=== PATIENT | female | born 1995 | race Two or more races ===

== ENCOUNTER 2024-09-01 06:13 | Emergency (ER) | payer OTHER ==
[~2024-09-01] VITALS: Ht 165.1 cm; Wt 54.4 kg
[2024-09-01] MEDS ORDERED: 0.9 % SODIUM CHLORIDE 1,000 ML IV STA (07:34)
[2024-09-01 08:51] LABS: HEMATOCRIT 28.1 % (36.0-45.00); HEMOGLOBIN 8.5 g/dL (12.0-15.00); MEAN CELL VOLUME 62.9 fL (80.00-100.00); MEAN CORPUSCULAR HGB CONC 30.1 g/dl (32.0-36.0); PLATELET COUNT 212 K/uL (150-450); RED BLOOD COUNT 4.47 M/uL (4.00-6.00); RED CELL DISTRIBUTION WIDTH 19.6 % (11.5-14.5)
[2024-09-01 09:17] LABS: INR 1.1; PARTIAL THROMBOPLASTIN TIME 23.8 SECONDS (22.0-34.0)
[2024-09-01 09:18] LABS: CALCIUM 8.9 mg/dL (8.5-10.1); CREATININE SERUM 0.45 mg/dL (0.55-1.02); GFR 168.42; POTASSIUM 4.61 mEq/L (3.5-5.1)
[2024-09-01 09:33] LABS: PROTHROMBIN TIME 11.9 SECONDS (9.0-11.5)
== END 2024-09-01 14:41 | disposition home or self-care (01) ==
LOC: ER 06:13
DX: R42 Dizziness and giddiness (principal)